=== PATIENT | male | born 1995 | race Caucasian/White ===

== ENCOUNTER 2017-01-04 06:09 | Day surgery (SDC) | payer BC ==
[2017-01-03 09:40] VITALS: BMI 29.2
--- NOTE | 2017-01-03 19:54 | PREOPHP ---
DATE OF ADMISSION: 01/04/2017 REASON FOR ADMISSION: A 21-year-old patient is going to be admitted for diagnostic arthroscopy of the right knee, examination under general anesthesia, possible medial lateral meniscectomy, possible repair, plus anterior cruciate ligament reconstruction using allograft Achilles tendon graft, application of Pleitez dressing. HISTORY OF PRESENT ILLNESS: This patient has been experiencing knee pain for quite awhile. Conservative treatment resulted in no benefit to the patient. The patient's family has requested surgical intervention. PAST MEDICAL HISTORY: Entirely unremarkable. SOCIAL HISTORY: Nonsmoker, nondrinker. MEDICATIONS: None except for postop Bactrim DS and Tylenol #3 is given. ALLERGIES: NO HISTORY OF ALLERGIES TO MEDICATIONS. PHYSICAL EXAMINATION: VITAL SIGNS: Height 5 feet 6 inches, weight 179 pounds. SKIN: Within normal limits. HEENT: PERRLA. Atraumatic, normocephalic. Trachea midline. Bilateral No mass, no bleeding, no lymphadenopathy. CARDIAC: Normal sinus rhythm, S1 and S2 normal, no murmur, no JVD, no peripheral edema. LUNGS: Clear. ABDOMEN: Soft, scaphoid, no organomegaly, no mass, bowel sounds present. GENITOURINARY AND RECTAL: Not done, not pertinent to this admission. MUSCULOSKELETAL EVALUATION: Head and neck unremarkable. Upper extremities normal with normal neurovascular examination. Spine clear. Both lower extremities within normal limits except for the right knee. Range of motion is close to normal compared to the opposite side. There is tenderness over the mediolateral tibial femoral joint line. Positive Dolly's test. Slight joint effusion being present. Positive Vance. DIAGNOSTIC DATA: MRI of the knee has indicated complete anterior cruciate tear, torn medial meniscus, torn lateral meniscus, joint effusion. ASSESSMENT AND PLAN: Alternatives, risks, and benefits discussed. The patient understands the possibility of complications such as infection, bleeding, nerve damage, vascular damage, possibility of deep venous thrombosis, pulmonary embolism, hypersensitivity and even . An ideal result may not be obtained depending on known or unknown factor or factors. Formal H and P is supposed to be done by PCP. Dictated By: Troy Vera MD /nasra/may /Document#: [id number]
[~2017-01-04] VITALS: Ht 167.6 cm; Wt 80.5 kg
[~2017-01-04 06:09] MED LIST: CEFAZOLIN 2 GM/50 ML (PMX) 50 ML IVPB ONE
[2017-01-04 06:49] VITALS: Ht 167.6 cm; Wt 80.5 kg
[2017-01-04 06:54] VITALS: BP 130/63; PULSE 84; RESP 18
[2017-01-04] MEDS ORDERED: MIDAZOLAM 1 MG/ML 2 ML INJ ONE (06:59)
[2017-01-04] MEDS ORDERED: FENTAnyl 50 MCG/ML VIAL ONE (06:59)
[2017-01-04] MEDS ORDERED: NEOSTIGMINE 3 MG/3 ML SYRINGE ONE (06:59)
[2017-01-04] MEDS ORDERED: GLYCOPYRROLATE 0.4 MG INJ ONE (06:59)
[2017-01-04] MEDS ORDERED: LIDOCAINE 2% (SDV) 5 ML INJ ONE (06:59)
[2017-01-04] MEDS ORDERED: ONDANSETRON 4 MG INJ ONE (06:59)
[2017-01-04] MEDS ORDERED: DEXAMETHASONE 4 MG/ML 1 ML INJ ONE (06:59)
[2017-01-04] MEDS ORDERED: ROCURONIUM 50 MG INJ ONE ×2 (06:59→07:00)
[2017-01-04] MEDS ORDERED: PROPOFOL 20 ML ONE (06:59)
[2017-01-04] MEDS ORDERED: MIDAZOLAM 1 MG/ML 2 ML INJ IV PRN (07:00)
[2017-01-04] MEDS ORDERED: SEVOFLURANE 15 MIN ONE (07:00)
[2017-01-04] MEDS ORDERED: FENTAnyl 50 MCG/ML VIAL IV PRN (07:00)
[2017-01-04] MEDS ORDERED: OXYCODONE/ACETAMINOPHEN (5/325) TAB PO PRN ×2 (07:00)
[2017-01-04] MEDS ORDERED: MEPERIDINE 25 MG INJ IV PRN (07:00)
[2017-01-04] MEDS ORDERED: LABETALOL HCL 20MG INJ IV PRN (07:00)
[2017-01-04] MEDS ORDERED: HYDROmorphONE (0.2 MG/ML) 10ML SYG IV PRN ×3 (07:00)
[2017-01-04] MEDS ORDERED: ATROPINE 1 MG/10 ML SYRINGE IV PRN (07:00)
[2017-01-04] MEDS ORDERED: ONDANSETRON 4 MG INJ IV PRN (07:00)
[2017-01-04] MEDS ORDERED: DIPHENHYDRAMINE 50 MG INJ IV PRN (07:00)
[2017-01-04] MEDS ORDERED: EPHEDrine SULFATE 50 MG/5 ML SYG IV PRN (07:00)
[2017-01-04] MEDS ORDERED: hydrALAzine 20 MG INJ IV PRN (07:00)
[2017-01-04] MEDS ORDERED: morphine (1 MG/ML) 10ML SYRINGE IV PRN ×3 (07:00)
[2017-01-04] MEDS ORDERED: POLYMYXIN/BACITRACIN 1L IRRIG ONE (07:04)
[2017-01-04] MEDS ORDERED: EPINEPHrine 1 MG/ML 30 ML INJ ONE (07:04)
[2017-01-04] MEDS ORDERED: SODIUM CL BACTERIOSTATIC 30 ML INJ ONE (07:04)
[2017-01-04] MEDS ORDERED: morphine SULFATE/PF (10 MG/10 ML) INJ ONE (07:04)
[2017-01-04 07:29] LABS: INR 0.96; PROTIME 12.8 Sec (12.2-14.2)
[2017-01-04 07:30] LABS: PARTIAL THROMBOPLASTIN TIME 30.3 Sec (25.0-35.0)
[2017-01-04] MEDS ORDERED: LACTATED RINGER'S 1,000 ML IV SCH (07:30)
[2017-01-04] MEDS ORDERED: CEFAZOLIN 1 GM INJ ONE (07:47)
[2017-01-04] MEDS ORDERED: LABETALOL HCL 20MG INJ ONE (08:02)
[2017-01-04] MEDS ORDERED: ROPIVACAINE 0.5 % 30 ML VIAL ONE (08:14)
[2017-01-04] MEDS ORDERED: LIDOCAINE 2%/EPI 30 ML INJ ONE (08:14)
[2017-01-04] MEDS ORDERED: POLYMYXIN/BACITRACIN 1L IRRIG IRR ONE (08:29)
[2017-01-04] MEDS ORDERED: EPINEPHrine 1 MG/ML 30 ML INJ IRR ONE (08:32)
[2017-01-04] MEDS ORDERED: FLUMAZENIL 0.5 MG INJ ONE (11:20)
[2017-01-04 11:41] VITALS: BP 122/76; PULSE 87; RESP 17
[2017-01-04] MEDS: FENTAnyl 50 MCG/ML VIAL IV PRN ×2 (12:13→13:14)
[2017-01-04 13:10] VITALS: BP 125/58; PULSE 93; RESP 20
--- NOTE | 2017-01-05 05:28 | OPR ---
DATE OF OPERATION: 01/04/2017 PREOPERATIVE DIAGNOSES: 1. Right knee anterior cruciate ligament disruption. 2. Torn menisci. POSTOPERATIVE DIAGNOSIS: 1. Right knee anterior cruciate ligament disruption. 2. Torn menisci. OPERATION PERFORMED: Diagnostic arthroscopy with examination under general anesthesia, repair of lateral meniscus and anterior cruciate ligament allograft reconstruction using a Edelmira standard pre-sized 10 mm graft. ANESTHESIA: General. ESTIMATED BLOOD LOSS: 25 mL COMPLICATIONS: None. TELEPHONE WORKER: . OPERATIVE PROCEDURE: The patient was transferred to the operating room, placed on the table in supine position. General anesthesia was induced. 2 g of Ancef was given on the way. Patient's right lower extremity was shaved, prepped and draped in the routine fashion. Landmarks were marked. Two regular . Examination under anesthesia indicated complete disruption of ACL and 3+ Vance. After establishing the regular 2 portals, examination of the suprapatellar pouch indicated normal finding. Going to medial lateral gutter, it was clear of loose bodies and the patellofemoral surface was pretty normal engaging the patella in 40 degrees and trochlear groove. Going to the medial compartment, articular surface was intact and was intact and I did not find any peripheral tear or flap tear or vertical tear. There was minimal undersurface tear posterior horn, . The ACL was completely disrupted and there was just some scar tissue remnant in place. Going to the lateral compartment, there was a vertical tear of the posterior horn of the medial meniscus, which was partial, but most important was that it was the posterior horn, complete , pretty unstable. I could fold the whole meniscus, reattach it in the inner margin to the anterior horn. Therefore, using Fast-Fix, we stabilized the posterior rim of the lateral meniscus. Stable fixation was obtained on bleeding surface. Now we paid attention to ACL. Remnant of the ACL was removed and the medial side of the lateral femoral condyle was prepared and a minimum notchplasty was performed and we found anatomical site of the ACL attachment that was marked. Hemostasis was obtained during the procedure with the help of [employer]throCare Bovie coagulation. We used a combination of dominic with Bovie coagulation and into periphery of the site. We used a 55-degree ACL guide and then a tibial guide end was placed in and we mack to 6.5 and then 7 and then 8, 9 and subsequently 10 and then we used a long guide and we drilled to anatomical site of the ACL and exited superiorly and laterally on the femur. Since the graft was turned by 30 mm, we drilled exactly 10 x 30 mm femoral tunnel. All debris was removed. Now we paid attention to the ACL graft. ACL graft was trimmed for 10 mm. The bone was crimped, which was slightly larger than 10, until it would fit into the femoral tunnel and 2 Were put through to the other hole, the bony plug. Then we used a baseball stitch and from 3.5 cm down from the plug and then we put it on the tensioner for 15-20 minutes. Then back to the knee, the tunnel was cleared from debris from the femoral and tibial tunnel. The edges were cleaned and all debris was removed. Then we went back to the graft, which was now 10 minutes, and we passed it through the tibial tunnel, which was made through a 1-inch incision and that was delivered to femoral side. Then the bony plug was stabilized by 7 x 28 mm and we obtained pretty much stable fixation. The knee was put into hyperextension and with tension on the graft, we put an 8 x 30 mm Interference screw and stable fixation was obtained and Vance was completely negative. The knee was evacuated from debris with copious amount of saline irrigation and excess autograft was removed. It was irrigated with saline irrigation. We used 0 Vicryl sutures to suture the remnant of the excess allograft to the periosteum and then we closed the subcutaneous tissue in 2 layers and the skin was closed with skin elodia. A superolateral portal was established and Hemovac was placed in and all the water was removed and we put 10 mg of Duramorph mixed with 10 mL in injectable saline into the knee and 5 mL was put through the tibial tunnel incision. Sterile, dry dressing was applied and procedure was terminated. Unfortunately, the hospital did not have any postop ACL brace, and it was not ordered, although it was approved, patient never received it and my office is working on it. It will be delivered to the house and I can apply it subsequently. Dictated By: Troy Vera MD /nasra/miguel /Document#: [id number] ; PCP
== END 2017-01-04 15:10 | disposition home or self-care (01) ==
LOC: SDS 06:09
PROVIDERS: ATTEND Internal Medicine Endocrinology, Diabetes & Metabolism
DX: M23.251 Derangement of posterior horn of lateral meniscus due to old tear or injury, right knee (principal); S83.511D Sprain of anterior cruciate ligament of right knee, subsequent encounter; X58.XXXD Exposure to other specified factors, subsequent encounter
CPT/HCPCS: 29881; 29888; 85610; 85730; C1762; J0171; J0690; J1100; J2250; J2274; J2405; J2795; J3010; Z7512; Z7610; J2710